=== PATIENT | female | born 1990 | race American Indian/Alaskan Native ===

== ENCOUNTER 2018-08-22 01:18 | Emergency (ER) | payer BC ==
--- NOTE | 2018-08-22 03:58 | Emergency Department Report ---
ED ENT HPI - General Chief complaint: Eye Problems Stated complaint: LEFT EYE /HEAD PAIN Time Seen by Provider: 08/22/18 03:30 Source: patient Mode of arrival: Ambulatory Limitations: No Limitations - History of Present Illness Initial comments: Pt is a 28 yo female who presents to the ED with c/o left sided facial swelling in the cheek and around the eye that began yesterday. She denies any drainage from the eye, vision problems, fever, dental problems, or any other sx. She states she has been using an icepack. She denies any PMHx or allergies to meds. - Related Data Previous Rx's Medication Instructions Recorded Last Taken Type Amoxicillin/K Clav Tab [Augmentin 1 tab PO BID 7 Days #14 tab 08/22/18 Unknown Rx 875 mg] diphenhydrAMINE [Benadryl CAP] 25 mg PO Q8HR PRN #20 capsule 08/22/18 Unknown Rx Allergies Allergy/AdvReac Type Severity Reaction Status Date / Time No Known Allergies Allergy Unverified 08/22/18 01:21 ED Dental HPI - General Chief complaint: Eye Problems Stated complaint: LEFT EYE /HEAD PAIN Time Seen by Provider: 08/22/18 03:30 Source: patient Mode of arrival: Ambulatory Limitations: No Limitations - Related Data Previous Rx's Medication Instructions Recorded Last Taken Type Amoxicillin/K Clav Tab [Augmentin 1 tab PO BID 7 Days #14 tab 08/22/18 Unknown Rx 875 mg] diphenhydrAMINE [Benadryl CAP] 25 mg PO Q8HR PRN #20 capsule 08/22/18 Unknown Rx Allergies Allergy/AdvReac Type Severity Reaction Status Date / Time No Known Allergies Allergy Unverified 08/22/18 01:21 ED Review of Systems ROS: Stated complaint: LEFT EYE /HEAD PAIN Other details as noted in HPI Comment: All other systems reviewed and negative ED Past Medical Hx - Past Medical History Previous Medical History?: No - Surgical History Past Surgical History?: No - Social History Smoking Status: Current Every Day Smoker Substance Use Type: Alcohol - Medications Home Medications: Home Medications Medication Instructions Recorded Confirmed Last Taken Type Amoxicillin/K Clav Tab [Augmentin 1 tab PO BID 7 Days #14 tab 08/22/18 Unknown Rx 875 mg] diphenhydrAMINE [Benadryl CAP] 25 mg PO Q8HR PRN #20 capsule 08/22/18 Unknown Rx ED Physical Exam - General Limitations: No Limitations General appearance: alert, in no apparent distress - Head Head exam: Present: atraumatic, other (left maxillary sinus TTP, small amount of edema to the left cheek, no erythema, no fluctuance) - Eye Eye exam: Present: normal appearance - ENT ENT exam: Present: normal orophraynx, other (erythema of the nasal turbinates bilaterally with purulent discharge present) - Respiratory Respiratory exam: Present: normal lung sounds bilaterally. Absent: respiratory distress, wheezes, rales, rhonchi, stridor, chest wall tenderness, accessory muscle use, decreased breath sounds, prolonged expiratory - Cardiovascular Cardiovascular Exam: Present: regular rate, normal rhythm, normal heart sounds. Absent: systolic murmur, diastolic murmur, rubs, gallop - Neurological Exam Neurological exam: Present: alert, oriented X3 - Psychiatric Psychiatric exam: Present: normal affect, normal mood - Skin Skin exam: Present: warm, dry, intact ED Course Vital Signs 08/22/18 08/22/18 01:22 04:11 Temperature 97.8 F 98.2 F Pulse Rate 105 H 66 Respiratory 16 18 Rate Blood Pressure 150/85 Blood Pressure 140/84 [Left] O2 Sat by Pulse 100 98 Oximetry ED Medical Decision Making - Medical Decision Making Pt is a 28 yo female who presents to the ED with c/o left sided facial swelling in the cheek and around the eye that began yesterday. She denies any drainage from the eye, vision problems, fever, dental problems, or any other sx. She states she has been using an icepack. She denies any PMHx or allergies to meds. on examination pt has erythema and purulence of the nasal turbinates, pt given abx for sinusitis. advised to take benadryl OTC for small amount of edema to the cheek. discussed to take all medication as prescribed. Follow up with PCP in the next 2-3 days. return to the ED for any new or worsening symptoms. also discussed with pt the elevation in her blood pressure and that she would need to see her PCP for reevaluation and to discuss intervention, improved on repeat of vitals. Critical care attestation.: If time is entered above; I have spent that time in minutes in the direct care of this critically ill patient, excluding procedure time. ED Disposition Clinical Impression: Left facial swelling, Elevated blood pressure reading Sinusitis Qualifiers: Sinusitis location: maxillary Chronicity: acute Recurrence: non-recurrent Qualified Code(s): J01.00 - Acute maxillary sinusitis, unspecified Disposition: TO HOME OR SELFCARE Is pt being admited?: No Does the pt Need Aspirin: No Condition: Stable Instructions: Sinusitis (ED) Additional Instructions: Please take all medication as prescribed. follow up with your primary care doctor in the next 2-3 days for reevaluation and to discuss the elevated blood pressure reading. return to the emergency room for any new or worsening symptoms. Prescriptions: Amoxicillin/K Clav Tab [Augmentin 875 mg] 1 tab PO BID 7 Days #14 tab diphenhydrAMINE [Benadryl CAP] 25 mg PO Q8HR PRN #20 capsule PRN Reason: swelling [facility]: [facility] [Primary Care Provider] - 2-3 Days Time of Disposition: 03:59 Print Language: URDU
[2018-08-22 04:12] VITALS: BP 140/84
== END 2018-08-22 04:11 | disposition home or self-care (01) ==
LOC: ED 01:18
DX: J01.00 Acute maxillary sinusitis, unspecified (principal); R03.0 Elevated blood-pressure reading, without diagnosis of hypertension; F17.200 Nicotine dependence, unspecified, uncomplicated
CPT/HCPCS: 99282